=== PATIENT | female | born 1970 | race Caucasian/White ===

== ENCOUNTER 2016-10-27 20:58 | Inpatient (IN) | payer MEDICAID ==
[2016-10-27] MEDS ORDERED: HYDROMORPHONE HCL INJ/PF 2 MG/ML AMPULE IV ONE (21:37)
--- NOTE | 2016-10-27 21:49 | ER Document Report ---
ED Fall - General Stated Complaint: FALL/HIP PAIN Time seen by provider: 21:49 Mode of Arrival: Medic Information source: Patient - HPI Patient complains to provider of: fall, right hip pain Occurred: Just prior to arrival Where: Outdoors Context: Slipped Location of injury/pain: Hip Quality of pain: Achy Severity: Moderate Pain Level: 4 Notes: Patient is a 46-year-old female brought to emergency room by EMS for complaints of fall with injury to right hip, patient states that she was walking her dog who weighs approximately 150 pounds, the dog pulled her very abruptly, causing her to fall and land on her right hip, she was unable to get up and ambulate after the fall, she denies any loss of consciousness, no nausea or vomiting, patient admits to having a few beers prior to the fall occurring, and she is a smoker - Related data Allergies/Adverse Reactions: No Known Allergies Allergy (Unverified 03/21/11 14:08) Past Medical History - General Information source: Patient - Social History Smoking Status: Current Every Day Smoker Family History: Reviewed & Not Pertinent - Past Medical History Cardiac Medical History: Denies: Hx Coronary Artery Disease, Hx Heart Attack Comment Only: Hx Hypertension - hypotension Pulmonary Medical History: Reports: Hx Bronchitis Denies: Hx Asthma, Hx COPD, Hx Pneumonia Neurological Medical History: Denies: Hx Cerebrovascular Accident, Hx Seizures GI Medical History: Reports: Hx Gastritis, Hx Gastroesophageal Reflux Disease, Hx Ulcer Musculoskeltal Medical History: Denies Hx Arthritis Past Surgical History: Reports: Hx Hysterectomy, Hx Tonsillectomy. Denies: Hx Pacemaker - Immunizations Hx Diphtheria, Pertussis, Tetanus Vaccination: No Review of Systems - Review of Systems Constitutional: No symptoms reported EENT: No symptoms reported Cardiovascular: No symptoms reported Respiratory: No symptoms reported Gastrointestinal: No symptoms reported Genitourinary: No symptoms reported Female Genitourinary: No symptoms reported Musculoskeletal: See HPI Skin: No symptoms reported Hematologic/Lymphatic: No symptoms reported Neurological/Psychological: No symptoms reported -: Yes All other systems reviewed and negative Physical Exam - Vital signs Interpretation: Normal - General General appearance: Appears well, Alert - HEENT Head: Normocephalic, Atraumatic Eyes: Normal Pupils: PERRL - Respiratory Respiratory status: No respiratory distress Chest status: Nontender Breath sounds: Normal Chest palpation: Normal - Cardiovascular Rhythm: Regular Heart sounds: Normal auscultation Murmur: No - Abdominal Inspection: Normal Distension: No distension Bowel sounds: Normal Tenderness: Nontender Organomegaly: No organomegaly - Back Back: Normal, Nontender - Extremities General upper extremity: Normal inspection, Nontender, Normal color, Normal ROM , Normal temperature General lower extremity: No: Cassandra's sign Hip: Tender - Tender to palpate over her right hip, pain with range of motion testing, right leg is slightly shortened and internally rotated, distal sensation and motor is intact with 2+ DP pulses and brisk capillary refill - Neurological Neuro grossly intact: Yes Cognition: Normal Orientation: AAOx4 [place] Coma Scale Eye Opening: Spontaneous [place] Coma Scale Verbal: Oriented [place] Coma Scale Motor: Obeys Commands [place] Coma Scale Total: 15 Speech: Normal Motor strength normal: LUE, RUE, LLE, RLE Sensory: Normal - Psychological Associated symptoms: Normal affect, Normal mood - Skin Skin Temperature: Warm Skin Moisture: Dry Skin Color: Normal Course - Re-evaluation Re-evalutation: 10/28/16 00:20 Patient was discussed with the on-call orthopedist who agrees to admit for further evaluation and treatment - Laboratory Result Diagrams: 10/27/16 22:45 10/27/16 22:45 - Diagnostic Test Radiology reviewed: Image reviewed, Reports reviewed - EKG Interpretation by [facility] EKG shows normal: Sinus rhythm Rate: Normal Rhythm: NSR - Consults Dr. Huber Time consulted: 22:18 Reason for consultation: 10/27/16 22:18 Right hip fracture Consulted provider: other - Transfer of Care Care transferred to following provider: Dr. Huber Discharge - Discharge Clinical Impression: Closed right hip fracture Qualifiers: Encounter type: initial encounter Qualified Code(s): S72.001A - Fracture of unspecified part of neck of right femur, initial encounter for closed fracture Condition: Stable Disposition: ADMITTED INPATIENT Admitting Provider: Dr. Huber Unit Admitted: Surgical Floor
[2016-10-27 22:57] LABS: WHITE BLOOD COUNT 5.6 10^3/uL (4.0-10.5)
[2016-10-27 23:03] LABS: HEMATOCRIT 27.9 % (36.0-47.0); HEMOGLOBIN 9.2 g/dL (12.0-15.5); HGB HCT DIFFERENCE -0.3; MEAN CORPUSCULAR HEMOGLOBIN 27.9 pg (27.0-33.4); MEAN CORPUSCULAR HGB CONC 32.9 g/dL (32.0-36.0); MEAN CORPUSCULAR VOLUME 85 fl (80-97); RED BLOOD COUNT 3.29 10^6/uL (3.72-5.28); RED CELL DISTRIBUTION WIDTH 16.9 % (11.5-14.0)
[2016-10-27 23:13] LABS: BASOPHILS % (MANUAL) 0 % (0-2); EOSINOPHILS % (MANUAL) 1 % (0-6); LYMPHOCYTES % (MANUAL) 28 % (13-45); TOTAL CELLS COUNTED 100
[2016-10-27 23:14] LABS: PARTIAL THROMBOPLASTIN TIME 32.4 SEC (23.5-35.8)
[2016-10-27 23:15] LABS: ALANINE AMINOTRANSFERASE 45 U/L (9-52); ALBUMIN 3.4 g/dL (3.5-5.0); ALCOHOL 160 mg/dL (NONE DETECTED); ALKALINE PHOSPHATASE 76 U/L (38-126); ANION GAP 12 (5-19); ASPARTATE AMINO TRANSFERASE 55 U/L (14-36); BILIRUBIN,DIRECT 0.1 mg/dL (0.0-0.4); BILIRUBIN,TOTAL 0.2 mg/dL (0.2-1.3); BLOOD UREA NITROGEN 8 mg/dL (7-20); CALCIUM 8.6 mg/dL (8.4-10.2); CARBON DIOXIDE 18 mmol/L (22-30); CHLORIDE 104 mmol/L (98-107); CREATININE RESULT 0.61 mg/dL (0.52-1.25); GLUCOSE 104 mg/dL (75-110); POTASSIUM 4.3 mmol/L (3.6-5.0); SODIUM 133.8 mmol/L (137-145); TOTAL PROTEIN 6.2 g/dL (6.3-8.2)
[2016-10-27 23:16] LABS: ANISOCYTOSIS 1+; TOXIC GRANULATION SLIGHT
[2016-10-27 23:18] LABS: HYPOCHROMASIA SLIGHT
[2016-10-27 23:25] LABS: APPEARANCE,URINE CLEAR; BILIRUBIN,URINE NEGATIVE (NEGATIVE); GLUCOSE, URINE NEGATIVE (NEGATIVE); KETONES,URINE NEGATIVE (NEGATIVE); LEUKOCYTE ESTERASE,URINE TRACE (NEGATIVE); NITRITE,URINE NEGATIVE (NEGATIVE); PROTEIN,URINE NEGATIVE (NEGATIVE); URINE SPECIFIC GRAVITY 1.003; UROBILINOGEN,URINE NEGATIVE mg/dL (<2.0)
[2016-10-28] MEDS: ONDANSETRON HCL INJ/PF 4 MG/2 ML SDV IV PRN ×2 (00:44→13:51)
[2016-10-28] MEDS: MORPHINE SULFATE 10 MG/ML INJ IV PRN ×5 (00:45→22:57)
[2016-10-28] MEDS: RINGERS SOLUTION,LACTATED 1,000 ML IV PRN (05:51)
[2016-10-28] MEDS ORDERED: NICOTINE 21 MG/24 HR PATCH.TD24 TD PRN (08:18)
--- NOTE | 2016-10-28 08:21 | PDOC CONSULTATION ---
Consultation Consult Date: 10/28/16 Attending physician:: PHONG GONZALEZ Consult reason:: To aid in the medical management of patient with hip fracture History of Present Illness Admission Date/PCP: 10/28/16 00:18 Urgent Care in [place] Patient complains of: Hip pain History of Present Illness: HEMANTH ZARATE is a 46 year old female with a past medical history of tobacco dependency. The patient was brought to emergency room by EMS for complaints of fall with injury to right hip. Patient states that she was walking her dog who weighs approximately 150 pounds, the dog pulled her very abruptly, causing her to fall and land on her right hip, she was unable to get up and ambulate after the fall, she denies any loss of consciousness, no nausea or vomiting, patient admits to having a few beers prior to the fall occurring, and she is a smoker and had a hysterectomy. Currently not on HRT. Patient was noted to have comminuted, displaced, intertrochanteric fracture at the proximal right femur on plain film x-ray. The patient denies any chronic medical problems. The patient does note that she is "unable to swallow pills". I gently explained to the patient that her pain would be controlled and that pain medication can be crushed or dispensed in an oral solution. The patient was also noted to have a hemoglobin of 9.2. The patient denies any melena, bright red bleeding per rectum, or hematochezia. Past Medical History Cardiac Medical History: Comment Only: Hypertension - Hypotension Pulmonary Medical History: Reports: Bronchitis GI Medical History: Reports: Gastroesophageal Reflux Disease Psychiatric Medical History: Reports: Tobacco Dependency Past Surgical History Past Surgical History: Reports: Hysterectomy, Tonsillectomy Social History Information Source: Patient Occupation: Unemployed Lives with: Family Smoking Status: Current Every Day Smoker Cigarettes Packs Per Day: 1 Number of Years Smokin Last Time Smoked: today Frequency of Alcohol Use: Occasional Amount of Alcoholic Beverages Per Day: Describes drinking a 6 pack on the weekends Last Alcohol Use: 10/27/16 Hx Recreational Drug Use: No Drugs: None Hx Prescription Drug Abuse: No - Advance Directive Resuscitation Status: Full Code Surrogate healthcare decision maker:: Her boyfriend Family History Family History: None - Estranged Parental Family History Reviewed: Yes - Estranged Children Family History Reviewed: Yes Sibling(s) Family History Reviewed.: Unknown Medication/Allergy Home Medications: No Home Medications 12/18/13 Allergies/Adverse Reactions: metal Allergy (Intermediate, Uncoded 10/28/16 07:15) Review of Systems Constitutional: ABSENT: chills, fever(s), headache(s), weight gain, weight loss Eyes: ABSENT: visual disturbances Ears: ABSENT: hearing changes Cardiovascular: ABSENT: chest pain, dyspnea on exertion, edema, orthropnea, palpitations Respiratory: ABSENT: cough, hemoptysis Gastrointestinal: PRESENT: dysphagia, heartburn. ABSENT: abdominal pain, constipation, diarrhea, hematemesis, hematochezia, nausea, vomiting Genitourinary: ABSENT: dysuria, hematuria Musculoskeletal: PRESENT: deformity, joint swelling Integumentary: ABSENT: rash, wounds Neurological: PRESENT: abnormal gait - Secondary to fracture, focal weakness - Secondary to fall. ABSENT: abnormal speech, confusion, dizziness, syncope Psychiatric: ABSENT: anxiety, depression, homidical ideation, suicidal ideation Endocrine: ABSENT: cold intolerance, heat intolerance, polydipsia, polyuria Hematologic/Lymphatic: ABSENT: easy bleeding, easy bruising Physical Exam Vital Signs: Temp Pulse Resp BP Pulse Ox 98.7 F 98 16 127/78 H 97 10/28/16 07:16 10/28/16 07:16 10/28/16 07:16 10/28/16 07:16 10/28/16 07:16 Intake & Output 10/26/16 10/27/16 10/28/16 23:59 23:59 23:59 Weight 49.2 kg General appearance: PRESENT: no acute distress, cooperative, disheveled, thin Exam: Frail appearing Head exam: PRESENT: atraumatic, normocephalic Eye exam: PRESENT: conjunctiva pink, EOMI, PERRLA. ABSENT: scleral icterus Ear exam: PRESENT: normal external ear exam Mouth exam: PRESENT: moist, tongue midline Neck exam: ABSENT: carotid bruit, JVD, lymphadenopathy, thyromegaly Respiratory exam: PRESENT: clear to auscultation bonnie, symmetrical, unlabored. ABSENT: rales, rhonchi, tachypnea, wheezes Cardiovascular exam: PRESENT: RRR. ABSENT: diastolic murmur, rubs, systolic murmur Pulses: PRESENT: normal dorsalis pedis pul Vascular exam: PRESENT: normal capillary refill GI/Abdominal exam: PRESENT: normal bowel sounds, soft. ABSENT: distended, guarding, mass, organolmegaly, rebound, tenderness Rectal exam: PRESENT: deferred Extremities exam: PRESENT: other - Tender to palpate over her right hip, pain with range of motion testing, right leg is slightly shortened and internally rotated, distal sensation and motor is intact with 2+ DP pulses and brisk capillary refill. ABSENT: calf tenderness, clubbing, pedal edema Neurological exam: PRESENT: alert, awake, oriented to person, oriented to place , oriented to time, oriented to situation, CN II-XII grossly intact. ABSENT: motor sensory deficit Psychiatric exam: PRESENT: appropriate affect, normal mood. ABSENT: homicidal ideation, suicidal ideation Skin exam: PRESENT: dry, intact, warm. ABSENT: cyanosis, rash Results Laboratory Results: Labs- Last Values WBC 5.6 10^3/uL (4.0-10.5) 10/27/16 22:45 RBC 3.29 10^6/uL (3.72-5.28) L 10/27/16 22:45 Hgb 9.2 g/dL (12.0-15.5) L 10/27/16 22:45 Hct 27.9 % (36.0-47.0) L 10/27/16 22:45 MCV 85 fl (80-97) 10/27/16 22:45 MCH 27.9 pg (27.0-33.4) 10/27/16 22:45 MCHC 32.9 g/dL (32.0-36.0) 10/27/16 22:45 RDW 16.9 % (11.5-14.0) H 10/27/16 22:45 Plt Count 136 10^3/uL (150-450) L 10/27/16 22:45 Total Counted 100 10/27/16 22:45 Seg Neutrophils % Not Reportable 10/27/16 22:45 Seg Neuts % (Manual) 66 % (42-78) 10/27/16 22:45 Lymphocytes % Not Reportable 10/27/16 22:45 Lymphocytes % (Manual) 28 % (13-45) 10/27/16 22:45 Monocytes % Not Reportable 10/27/16 22:45 Monocytes % (Manual) 5 % (3-13) 10/27/16 22:45 Eosinophils % Not Reportable 10/27/16 22:45 Eosinophils % (Manual) 1 % (0-6) 10/27/16 22:45 Basophils % Not Reportable 10/27/16 22:45 Basophils % (Manual) 0 % (0-2) 10/27/16 22:45 Absolute Neutrophils Not Reportable 10/27/16 22:45 Abs Neuts (Manual) 3.7 10^3/uL (1.7-8.2) 10/27/16 22:45 Absolute Lymphocytes Not Reportable 10/27/16 22:45 Abs Lymphs (Manual) 1.6 10^3/uL (0.5-4.7) 10/27/16 22:45 Absolute Monocytes Not Reportable 10/27/16 22:45 Abs Monocytes (Manual) 0.3 10^3/uL (0.1-1.4) 10/27/16 22:45 Absolute Eosinophils Not Reportable 10/27/16 22:45 Absolute Eos (Manual) 0.1 10^3/uL (0.0-0.6) 10/27/16 22:45 Absolute Basophils Not Reportable 10/27/16 22:45 Abs Basophils (Manual) 0.0 10^3/uL (0.0-0.2) 10/27/16 22:45 Toxic Granulation SLIGHT 10/27/16 22:45 Platelet Comment ADEQUATE 10/27/16 22:45 Hypochromasia SLIGHT 10/27/16 22:45 Anisocytosis 1+ 10/27/16 22:45 PT 13.0 SEC (11.4-15.4) 10/27/16 22:45 INR 0.95 10/27/16 22:45 APTT 31.8 SEC (23.5-35.8) 10/28/16 00:38 Sodium 133.8 mmol/L (137-145) L 10/27/16 22:45 Potassium 4.3 mmol/L (3.6-5.0) 10/27/16 22:45 Chloride 104 mmol/L (98-107) 10/27/16 22:45 Carbon Dioxide 18 mmol/L (22-30) L 10/27/16 22:45 Anion Gap 12 (5-19) 10/27/16 22:45 BUN 8 mg/dL (7-20) 10/27/16 22:45 Creatinine 0.61 mg/dL (0.52-1.25) 10/27/16 22:45 Est GFR ( Amer) > 60 (>60) 10/27/16 22:45 Est GFR (Non-Af Amer) > 60 (>60) 10/27/16 22:45 Glucose 104 mg/dL (75-110) 10/27/16 22:45 Calcium 8.6 mg/dL (8.4-10.2) 10/27/16 22:45 Total Bilirubin 0.2 mg/dL (0.2-1.3) 10/27/16 22:45 Direct Bilirubin 0.1 mg/dL (0.0-0.4) 10/27/16 22:45 Indirect Bilirubin Not Reportable 10/27/16 22:45 Neonat Total Bilirubin Not Reportable 10/27/16 22:45 AST 55 U/L (14-36) H 10/27/16 22:45 ALT 45 U/L (9-52) 10/27/16 22:45 Alkaline Phosphatase 76 U/L (38-126) 10/27/16 22:45 Total Protein 6.2 g/dL (6.3-8.2) L 10/27/16 22:45 Albumin 3.4 g/dL (3.5-5.0) L 10/27/16 22:45 Urine Color YELLOW 10/27/16 23:05 Urine Appearance CLEAR 10/27/16 23:05 Urine pH 5.0 (5.0-9.0) 10/27/16 23:05 Ur Specific [place] 1.003 10/27/16 23:05 Urine Protein NEGATIVE mg/dL (NEGATIVE) 10/27/16 23:05 Urine Glucose (UA) NEGATIVE mg/dL (NEGATIVE) 10/27/16 23:05 Urine Ketones NEGATIVE mg/dL (NEGATIVE) 10/27/16 23:05 Urine Blood NEGATIVE (NEGATIVE) 10/27/16 23:05 Urine Nitrite NEGATIVE (NEGATIVE) 10/27/16 23:05 Urine Bilirubin NEGATIVE (NEGATIVE) 10/27/16 23:05 Urine Urobilinogen NEGATIVE mg/dL (<2.0) 10/27/16 23:05 Ur Leukocyte Esterase TRACE (NEGATIVE) H 10/27/16 23:05 Urine WBC (Auto) 1 /HPF 10/27/16 23:05 Urine RBC (Auto) 0 /HPF 10/27/16 23:05 Urine Bacteria (Auto) 1+ /HPF 10/27/16 23:05 Urine Mucus (Auto) RARE /LPF 10/27/16 23:05 Urine Ascorbic Acid NEGATIVE (NEGATIVE) 10/27/16 23:05 Serum Alcohol 160 mg/dL (NONE DETECTED) 10/27/16 22:45 Impressions: Chest X-Ray 10/27/16 00:00 IMPRESSION: NO ACUTE RADIOGRAPHIC FINDING IN THE CHEST. Hip/Pelvis X-Ray 10/27/16 21:37 IMPRESSION: RIGHT FRACTURE ABOVE. Lower Extremity CT 10/28/16 00:00 IMPRESSION: Comminuted, displaced, intertrochanteric fracture at the proximal right femur. If there is clinical concern for pathologic fracture, MRI can help in better evaluation. Assessment & Plan - Diagnosis (1) Closed right hip fracture Qualifiers: Encounter type: initial encounter Qualified Code(s): S72.001A - Fracture of unspecified part of neck of right femur, initial encounter for closed fracture Is this a current diagnosis for this admission?: YesPlan: Management as per orthopedics. (2) Anemia Qualifiers: Anemia type: unspecified type Qualified Code(s): D64.9 - Anemia, unspecified Is this a current diagnosis for this admission?: YesPlan: Uncertain of the exact etiology of this. Given the patient's apparent malnutrition this may be chronic dietary related. Will obtain iron studies and repeat CBC. Will go ahead and type and cross as well. (3) Acute alcohol intoxication Qualifiers: Complication of substance-induced condition: uncomplicated Qualified Code(s): F10.120 - Alcohol abuse with intoxication, uncomplicated Is this a current diagnosis for this admission?: YesPlan: The patient is awake and oriented at this time no evidence of acute withdrawals. Will monitor closely the patient was quite a vague historian in this matter and labs below. 10/27/16 22:45 Sodium 133.8 L AST 55 H (4) Inability to swallow pills Is this a current diagnosis for this admission?: YesPlan: IV medication for immediate postop pain. I have explained to the patient that oral medications can be obtained in either solution form or crushed. The patient will not be receiving IV pain medication during the duration of her stay (5) Likely osteoporosis Is this a current diagnosis for this admission?: YesPlan: Most likely the patient will need a biphosphonate in outpatient basis. Can be followed by her primary. Will obtain vitamin D level and follow. (6) Hyponatremia Is this a current diagnosis for this admission?: YesPlan: Relatively mild and may be due to her consumption. She has been hydrated. Will repeat chemistries and follow. (7) Malnutrition Is this a current diagnosis for this admission?: YesPlan: The patient does have a low BMI. Will encourage by mouth intake. 10/27/16 22:45 Albumin 3.4 L (8) DVT prophylaxis Is this a current diagnosis for this admission?: YesPlan: As per ortho. Have discussed the case and do not recommend oral agents given the patient's preoperative hemoglobin. (9) Tobacco dependency Is this a current diagnosis for this admission?: YesPlan: Spent 3 minutes discussing smoking cessation education. The patient declines any pharmacological intervention at this time however will add a PRN nicotine patch. - Time Time Spent: 50 to 70 Minutes Smoking Cessation Education: 3 to 10 minutes Medications reviewed and adjusted accordingly: Yes Anticipated discharge: Home with Homehealth Within: within 48 hours Disposition: The patient is a full code. Pending patient's symptomatology and diagnostic findings will reevaluate in the a.m.
[2016-10-28 08:29] LABS: HEMATOCRIT 26.8 % (36.0-47.0); HGB HCT DIFFERENCE 0.2; MEAN CORPUSCULAR HEMOGLOBIN 28.2 pg (27.0-33.4); MEAN CORPUSCULAR HGB CONC 33.4 g/dL (32.0-36.0); MEAN CORPUSCULAR VOLUME 84 fl (80-97); RED BLOOD COUNT 3.18 10^6/uL (3.72-5.28); RED CELL DISTRIBUTION WIDTH 16.5 % (11.5-14.0); WHITE BLOOD COUNT 4.8 10^3/uL (4.0-10.5)
[2016-10-28 08:51] LABS: ANION GAP 12 (5-19); BLOOD UREA NITROGEN 8 mg/dL (7-20); CARBON DIOXIDE 18 mmol/L (22-30); CHLORIDE 106 mmol/L (98-107); CREATININE RESULT 0.66 mg/dL (0.52-1.25); GLUCOSE 84 mg/dL (75-110); POTASSIUM 4.4 mmol/L (3.6-5.0)
[2016-10-28] MEDS ORDERED: LIDOCAINE 2% INJ-PF (20 MG/ML) 10 ML AMPUL ONE (09:36)
[2016-10-28] MEDS ORDERED: HYDROMORPHONE HCL INJ/PF 2 MG/ML AMPULE ONE (09:36)
[2016-10-28] MEDS ORDERED: EPHEDRINE SULFATE INJ 50 MG/1 ML AMPULE ONE (09:37)
[2016-10-28] MEDS ORDERED: FENTANYL CITRATE INJ/PF 100 MCG/2 ML AMPUL ONE (09:37)
[2016-10-28] MEDS ORDERED: ONDANSETRON HCL INJ/PF 4 MG/2 ML SDV ONE ×2 (09:37→12:02)
[2016-10-28] MEDS ORDERED: DEXAMETHASONE SOD PHOSPHATE INJ 4 MG/1 ML VIAL ONE (09:37)
[2016-10-28] MEDS ORDERED: MIDAZOLAM 2 MG/2 ML INJ ONE (09:37)
[2016-10-28] MEDS ORDERED: ACETAMINOPHEN 100 ML IV ONE (09:38)
[2016-10-28] MEDS ORDERED: DEXMEDETOMIDINE INJ 80 MCG/20 ML VIAL IV ONE (09:38)
[2016-10-28] MEDS ORDERED: PROPOFOL INJ 200 MG/20 ML VIAL IV ONE (09:38)
--- NOTE | 2016-10-28 09:57 | PDOC H&P ---
History of Present Illness Admission Date/PCP: 10/28/16 00:18 Patient complains of: Right Hip Pain History of Present Illness: HEMANTH ZARATE is a 46 year old female with a past medical history of tobacco dependency. The patient was brought to emergency room by EMS for complaints of fall with injury to right hip. Patient states that she was walking her dog who weighs approximately 150 pounds, the dog pulled her very abruptly, causing her to fall and land "very hard" on her right hip, she was unable to get up and ambulate after the fall. Patient states pain is 10/10. Denies numbness or tingling. Has had previous hip discomfort she states it pops and clicks but does not limit her. Denies fever chills or weight loss. Denies constitutional symptoms. Pain was improved with IV pain medication but she has not had any since 5 AM. Past Medical History Cardiac Medical History: Denies: Coronary Artery Disease, Myocardial Infarction Comment Only: Hypertension - Hypotension Pulmonary Medical History: Reports: Bronchitis Denies: Asthma, Chronic Obstructive Pulmonary Disease (COPD), Pneumonia Neurological Medical History: Denies: Seizures GI Medical History: Reports: Gastroesophageal Reflux Disease Musculoskeltal Medical History: Denies: Arthritis Psychiatric Medical History: Reports: Tobacco Dependency Hematology: Denies: Anemia Past Surgical History Past Surgical History: Reports: Hysterectomy, Tonsillectomy Denies: Pacemaker Social History Lives with: Family Smoking Status: Current Every Day Smoker Cigarettes Packs Per Day: 1 Number of Years Smokin Last Time Smoked: today Frequency of Alcohol Use: Occasional Hx Recreational Drug Use: No Drugs: None Hx Prescription Drug Abuse: No - Advance Directive Resuscitation Status: Full Code Family History Family History: None - Estranged Parental Family History Reviewed: No Children Family History Reviewed: No Sibling(s) Family History Reviewed.: No Medication/Allergy Home Medications: No Home Medications 10/28/16 Allergies/Adverse Reactions: metal Allergy (Intermediate, Uncoded 10/28/16 07:15) Review of Systems Constitutional: ABSENT: chills, fever(s), headache(s), weight gain, weight loss Eyes: ABSENT: visual disturbances Ears: ABSENT: hearing changes Cardiovascular: ABSENT: chest pain, dyspnea on exertion, edema, orthropnea, palpitations Respiratory: ABSENT: cough, hemoptysis Gastrointestinal: PRESENT: dysphagia. ABSENT: abdominal pain, constipation, diarrhea, hematemesis, hematochezia, nausea, vomiting Genitourinary: ABSENT: dysuria, hematuria Integumentary: ABSENT: rash, wounds Neurological: ABSENT: abnormal gait, abnormal speech, confusion, dizziness, focal weakness, syncope Psychiatric: ABSENT: anxiety, depression, homidical ideation, suicidal ideation Endocrine: ABSENT: cold intolerance, heat intolerance, menstrual abnormalities, polydipsia, polyuria Hematologic/Lymphatic: ABSENT: easy bleeding, easy bruising, lymphadenopathy Physical Exam Vital Signs: Temp Pulse Resp BP Pulse Ox 98.7 F 98 16 127/78 H 97 10/28/16 07:16 10/28/16 07:16 10/28/16 07:16 10/28/16 07:16 10/28/16 07:16 Intake & Output 10/27/16 10/28/16 10/29/16 06:59 06:59 06:59 Weight 49.2 kg General appearance: PRESENT: no acute distress, well-developed, other - Thin- appearing female Head exam: PRESENT: atraumatic, normocephalic Eye exam: PRESENT: conjunctiva pink, EOMI, PERRLA. ABSENT: scleral icterus Ear exam: PRESENT: normal external ear exam Mouth exam: PRESENT: moist, tongue midline Neck exam: PRESENT: full ROM. ABSENT: carotid bruit, JVD, lymphadenopathy, thyromegaly Respiratory exam: PRESENT: clear to auscultation bonnie, unlabored Cardiovascular exam: PRESENT: RRR. ABSENT: diastolic murmur, rubs, systolic murmur Pulses: PRESENT: normal dorsalis pedis pul, +2 pedal pulses bilateral Vascular exam: PRESENT: normal capillary refill GI/Abdominal exam: PRESENT: normal bowel sounds, soft. ABSENT: distended, guarding, mass, organolmegaly, rebound, tenderness Rectal exam: PRESENT: deferred Musculoskeletal exam: PRESENT: other - Right lower extremity: Shortened externally rotated. Positive log roll. Cap refill less than 2 seconds. Dorsalis 2+. No sensory deficits. No tenderness to palpation on the nontraumatic left lower extremity and bilateral upper extremity. Neurological exam: PRESENT: alert, awake, oriented to person, oriented to place , oriented to time, oriented to situation, CN II-XII grossly intact. ABSENT: motor sensory deficit Psychiatric exam: PRESENT: appropriate affect, normal mood. ABSENT: homicidal ideation, suicidal ideation Skin exam: PRESENT: dry, intact, warm. ABSENT: cyanosis, rash Results Laboratory Results: 10/28/16 08:18 10/28/16 08:18 10/28/16 10/28/16 10/28/16 08:18 08:18 08:18 WBC 4.8 RBC 3.18 L Hgb 9.0 L Hct 26.8 L MCV 84 MCH 28.2 MCHC 33.4 RDW 16.5 H Plt Count 124 L Retic Count (auto) 1.82 Absolute Retic 0.058 Sodium Potassium Chloride Carbon Dioxide Anion Gap BUN Creatinine Est GFR ( Amer) Est GFR (Non-Af Amer) Glucose Calcium Blood Type A NEGATIVE Antibody Screen NEGATIVE 10/28/16 08:18 WBC RBC Hgb Hct MCV MCH MCHC RDW Plt Count Retic Count (auto) Absolute Retic Sodium 136.0 L Potassium 4.4 Chloride 106 Carbon Dioxide 18 L Anion Gap 12 BUN 8 Creatinine 0.66 Est GFR ( Amer) > 60 Est GFR (Non-Af Amer) > 60 Glucose 84 Calcium 9.0 Blood Type Antibody Screen Impressions: Chest X-Ray 10/27/16 00:00 IMPRESSION: NO ACUTE RADIOGRAPHIC FINDING IN THE CHEST. Hip/Pelvis X-Ray 10/27/16 21:37 IMPRESSION: RIGHT FRACTURE ABOVE. Lower Extremity CT 10/28/16 00:00 IMPRESSION: Comminuted, displaced, intertrochanteric fracture at the proximal right femur. If there is clinical concern for pathologic fracture, MRI can help in better evaluation. Assessment & Plan - Diagnosis (1) Fracture, intertrochanteric, right femur Qualifiers: Encounter type: initial encounter Fracture type: closed Qualified Code(s): S72.141A - Displaced intertrochanteric fracture of right femur, initial encounter for closed fracture Is this a current diagnosis for this admission?: YesPlan: Patient sustained intertrochanteric right hip fracture. Which is somewhat unusual given her age she did have previous hip pain which was chronic in nature. Patient CT scan radiographs failed to demonstrate evidence of pathologic fracture there is a small lucency along the femoral neck and given patient's age we will obtain intraoperative specimen to evaluate for possible underlying etiology. I discussed treatment options with the patient including operative versus nonoperative intervention. It have recommended right intramedullary nail risks and benefits were explained patient verbalized understanding and consented for the procedure. Risks include anesthetic complications, excessive bleeding, infection, injury to surrounding nerves, vessels and tendons, bruising, healing difficulties, scar formation, posttraumatic arthritis and any unforseen complication. Appreciate Joseph Kapadia consult for patient's chronic medical issues including anemia and alcohol abuse.
[2016-10-28] MEDS ORDERED: CEFAZOLIN INJ 1 GM VIAL ONE (10:17)
--- NOTE | 2016-10-28 10:24 | EKG REPORT ---
SEVERITY:- BORDERLINE ECG - SINUS RHYTHM BORDERLINE T ABNORMALITIES, ANT-LAT LEADS : Confirmed by: John Garcia MD 28-Oct-2016 10:23:37
[2016-10-28] MEDS ORDERED: MORPHINE SULFATE 10 MG/ML INJ IV PRN (10:25)
[2016-10-28] MEDS ORDERED: OXYCODONE-ACETAMINOPHEN 5-325 MG TABLET PO PRN ×2 (10:25)
[2016-10-28] MEDS ORDERED: PROMETHAZINE HCL INJ 25 MG/1 ML VIAL IV PRN ×2 (10:25)
[2016-10-28] MEDS ORDERED: MEPERIDINE HCL/PF INJ 25 MG/1 ML DISP.SYRIN IV PRN (10:25)
[2016-10-28] MEDS ORDERED: ONDANSETRON HCL INJ/PF 4 MG/2 ML SDV IV PRN (10:25)
[2016-10-28] MEDS ORDERED: FENTANYL CITRATE INJ/PF 100 MCG/2 ML AMPUL IV PRN ×3 (10:25)
[2016-10-28] MEDS ORDERED: DIPHENHYDRAMINE HCL 50 MG/ML VIAL IV PRN (10:25)
[2016-10-28] MEDS ORDERED: BUPIVACAINE HCL 0.5 % INJ/PF 30 ML SDV ONE (10:56)
--- NOTE | 2016-10-28 11:20 | Operative Report ---
Operative Report DATE OF SURGERY: 10/28/16 PREOPERATIVE DIAGNOSIS: Right Intertrochanteric Femur Fracture POSTOPERATIVE DIAGNOSIS: Same OPERATION: Cephalomedullary Nail Right Intertrochanteric Fracture SURGEON: PHONG GONZALEZ ANESTHESIA: GA TISSUE REMOVED OR ALTERED: Bone Proximal Femur COMPLICATIONS: None ESTIMATED BLOOD LOSS: 75cc PROCEDURE: Indication for above procedure: 46-year-old female presents merger after sustaining a fall while walking her dog onto her right hip. X-rays demonstrated proximal femur fracture. Patient was admitted to the orthopedic service at which point she was evaluated by the hospitalist deemed medically optimized for operative intervention. We then discussed risks and benefits of the operative procedure patient verbalized understanding and consented for the procedure. Patient was seen and evaluated in the preoperative holding area. The right lower extremity was initialized and marked. Patient received 2 g Ancef IV for bacterial prophylaxis. Patient was taken back to the operative room where transferred operative table. Patient was placed under spinal anesthesia. Once adequate anesthetized he was carefully placed onto the hip positioner the nonoperative lower extremity and bilateral upper extremities were carefully padded and the peroneal nerve was padded and on the nonoperative extremity. The operative extremity was placed in a traction along with adduction and internal rotation. A surgical team debriefing was performed ensuring all instrumentation was available, the surgical procedure was discussed with possible concerns reviewed. A timeout was done identifying correct patient, procedure and extremity everyone in attendance agree with this and verbalized no concerns. Reduction maneuver with the use of the hip traction table were done and C-arm fluoroscopy was used to confirm optimal reduction of the intertrochanteric fracture. Once this was confirmed the lower extremity was prepped with chlor prep and draped in a sterile fashion. At this point a small skin incision was made proximal to the greater trochanter. The guidewire was placed onto the tip of the trochanter advanced down to the level of the lesser trochanter. AP and lateral fluoroscopy was used to confirm appropriate placement of the guidewire. The skin incision was then extended and the underlying fascia opened up carefully to the tip of the greater trochanter. The entry reamer was then used and advanced to the level of the lesser trochanter. At this point Doroteo short gamma nail was opened up and placed onto the aiming arm and advanced down the shaft of the femur. AP and lateral fluoroscopy was then used to confirm appropriate placement of the nail. Then turned my attention to the compression screw fixation in the femoral head. The trochars were advanced to the skin, a skin incision was made, careful dissection down to the fascia to the lateral femoral cortex was then partaken. The guidewire was then used and placed in the center center position with the tip apex distance less than 25 mm. Once this position was obtained the size of the compression screw was measured. AP and lateral fluoroscopy used to confirm appropriate placement of our guide wire. The step reamer was used to drill up through the femoral neck and head. I then carefully advanced the compression screw into position. AP and lateral fluoroscopy was done to confirm appropriate placement of the compression screw this was then locked into position proximally. The compression screw was then disengaged from its mounting device and the guidewire was removed. Lastly proceeded with locking of the nail distally. Using the aiming arm the trochars were advanced to the skin, a skin incision was made. Careful dissection done with a hemostat to the lateral cortex of the femur. I then drilled the near and far cortices. Measured the appropriate sized distal locking screw and secured it into position. At this point AP/lateral and oblique views of the proximal and distal aspect of the nail were taken confirming appropriate placement of the compression screw, distal locking screw and intramedullary nail. There was no fluoroscopic evidence to suggest pathologic fracture. The reamings from the trochanteric reamer and step reamer at the femoral neck were sent to pathology. The wounds were irrigated with normal saline. 30 mL of 0.5% Marcaine without epinephrine was injected for postoperative pain control. Deep fascia was closed with 0 Vicryl. Subcutaneous days tissues closed with 2- 0 Vicryl suture. The skin was closed a running 3-0 subcuticular Monocryl suture and reinforced with Dermabond & Steri-Strips. A dressing was placed. Sponge counts, instrument counts and needle counts were correct. Patient was then transferred from the operating room table to the operating room stretcher. The was no intraoperative complications patient tolerated procedure well was stable to PACU. Implants used: Doroteo 11 x 180 mm 125 Short Gamma Nail with a 85 mm compression screw Postoperative plan: Patient will begin physical therapy on postop day #1 with subcutaneous heparin twice a day for prophylaxis.
[2016-10-28] MEDS: LANSOPRAZOLE 30 MG TAB.RAP.DR PO SCH (17:59)
[2016-10-28] MEDS ORDERED: HEPARIN SOD (PORCINE) 5,000 UNIT/ML 1 ML SYRINGE SUBCUT SCH (22:00)
[2016-10-28] MEDS: ZOLPIDEM TARTRATE 5 MG TABLET PO SCH (22:58)
[2016-10-29] MEDS: MORPHINE SULFATE 10 MG/ML INJ IV PRN ×5 (04:02→23:40)
[2016-10-29] MEDS: RINGERS SOLUTION,LACTATED 1,000 ML IV PRN ×2 (04:03→15:22)
[2016-10-29] MEDS: LANSOPRAZOLE 30 MG TAB.RAP.DR PO SCH ×2 (05:40→16:53)
[2016-10-29 06:54] LABS: ABSOLUTE LYMPHOCYTES (AUTO) 0.7 10^3/uL (0.5-4.7); ABSOLUTE MONOCYTES (AUTO) 0.4 10^3/uL (0.1-1.4); ABSOLUTE NEUT (AUTO) 3.9 10^3/uL (1.7-8.2); BASOPHILS % (AUTO) 0.6 % (0-2); HEMATOCRIT 19.7 % (36.0-47.0); HGB HCT DIFFERENCE -0.5; LYMPHOCYTES % (AUTO) 13.9 % (13-45); MEAN CORPUSCULAR HEMOGLOBIN 27.8 pg (27.0-33.4); MEAN CORPUSCULAR HGB CONC 32.3 g/dL (32.0-36.0); MEAN CORPUSCULAR VOLUME 86 fl (80-97); MONOCYTES % (AUTO) 8.7 % (3-13); RED CELL DISTRIBUTION WIDTH 16.7 % (11.5-14.0); SEGMENTED NEUTROPHILS % (AUTO) 76.8 % (42-78); WHITE BLOOD COUNT 5.1 10^3/uL (4.0-10.5)
[2016-10-29 07:06] LABS: HEMOGLOBIN 6.4 g/dL (12.0-15.5)
[2016-10-29 07:09] LABS: ANION GAP 6 (5-19); BLOOD UREA NITROGEN 9 mg/dL (7-20); CALCIUM 8.9 mg/dL (8.4-10.2); CARBON DIOXIDE 26 mmol/L (22-30); CHLORIDE 102 mmol/L (98-107); GLUCOSE 103 mg/dL (75-110); POTASSIUM 3.9 mmol/L (3.6-5.0)
--- NOTE | 2016-10-29 09:59 | PDOC PROGRESS REPORT ---
Subjective Progress Note for:: 10/29/16 Subjective:: Patient seen and evaluated this morning. She states she feels much better. Denies headache or dizziness. Patient's hemoglobin did decrease postoperatively. Patient denies chest pain or shortness of breath. After further questioning she states she has chronic anemia and required blood transfusions in the past but the exact etiology is unknown. Physical Exam Vital Signs: Temp Pulse Resp BP Pulse Ox 98.8 F 102 H 18 103/57 L 91 L 10/29/16 09:46 10/29/16 09:46 10/29/16 09:46 10/29/16 09:46 10/29/16 09:46 Intake & Output 10/28/16 10/29/16 10/30/16 06:59 06:59 06:59 Intake Total 3828 0 Output Total 1680 Balance 2148 0 Weight 49.2 kg Musculoskeletal exam: PRESENT: other - Right lower extremity: Considerable thigh swelling. Compartments soft and compressible no sign of compartment syndrome. Dorsalis pedis pulse 2+. Intact plantar flexion/dorsiflexion. No limb length inequality. No sensory deficits. Results Laboratory Results: 10/29/16 05:58 10/29/16 05:58 10/28/16 10/28/16 10/29/16 08:18 08:18 05:58 WBC 5.1 RBC 2.30 L Hgb 6.4 L D Hct 19.7 L MCV 86 MCH 27.8 MCHC 32.3 RDW 16.7 H Plt Count 114 L Seg Neutrophils % 76.8 Lymphocytes % 13.9 Monocytes % 8.7 Eosinophils % 0.0 Basophils % 0.6 Absolute Neutrophils 3.9 Absolute Lymphocytes 0.7 Absolute Monocytes 0.4 Absolute Eosinophils 0.0 Absolute Basophils 0.0 Sodium Potassium Chloride Carbon Dioxide Anion Gap BUN Creatinine Est GFR ( Amer) Est GFR (Non-Af Amer) Glucose Calcium Iron 34.9 L TIBC 268 % Saturation 13 Ferritin 23.30 Vitamin B12 601.0 Folate 8.30 Blood Type A NEGATIVE Antibody Screen NEGATIVE 10/29/16 05:58 WBC RBC Hgb Hct MCV MCH MCHC RDW Plt Count Seg Neutrophils % Lymphocytes % Monocytes % Eosinophils % Basophils % Absolute Neutrophils Absolute Lymphocytes Absolute Monocytes Absolute Eosinophils Absolute Basophils Sodium 134.0 L Potassium 3.9 Chloride 102 Carbon Dioxide 26 Anion Gap 6 BUN 9 Creatinine 0.70 Est GFR ( Amer) > 60 Est GFR (Non-Af Amer) > 60 Glucose 103 Calcium 8.9 Iron TIBC % Saturation Ferritin Vitamin B12 Folate Blood Type Antibody Screen Impressions: Chest X-Ray 10/27/16 00:00 IMPRESSION: NO ACUTE RADIOGRAPHIC FINDING IN THE CHEST. Lower Extremity CT 10/28/16 00:00 IMPRESSION: Comminuted, displaced, intertrochanteric fracture at the proximal right femur. If there is clinical concern for pathologic fracture, MRI can help in better evaluation. Fluoroscopy 10/28/16 09:45 IMPRESSION: IMAGE(S) OBTAINED DURING PROCEDURE. Hip/Pelvis X-Ray 10/28/16 09:45 IMPRESSION: IMAGE(S) OBTAINED DURING PROCEDURE. Assessment & Plan - Diagnosis (1) Fracture, intertrochanteric, right femur Qualifiers: Encounter type: initial encounter Fracture type: closed Qualified Code(s): S72.141A - Displaced intertrochanteric fracture of right femur, initial encounter for closed fracture Is this a current diagnosis for this admission?: YesPlan: Status post right hip IM nail #1 postoperative acute anemia on chronic anemia. Intraoperative patient had the proximal to 75 mL of blood loss and given the nature of the surgical procedure majority of the blood loss was probably secondary to the fracture and exacerbated by patient's thrombocytopenia. At this point we will hold her heparin given her risk of bleeding. She will receive 2 units of packed red blood cells. #2 pain control #3 physical therapy weightbearing as tolerated #4 anticipate discharge home with home health.
[2016-10-29] MEDS ORDERED: FUROSEMIDE INJ/PF 20 MG/2 ML SDV IV ONE (15:00)
[2016-10-29] MEDS ORDERED: ALPRAZOLAM 0.25 MG TABLET PO PRN (16:44)
--- NOTE | 2016-10-29 17:06 | PDOC PROGRESS REPORT ---
Subjective Progress Note for:: 10/29/16 Subjective:: Patient requested her Temple not be removed. Gently explained to patient that this can lead to infection and adverse outcome. Patient denies chest pain, shortness of breath, abdominal pain, nausea, vomiting , fevers, chills, diarrhea, constipation, headache. Patient is currently receiving blood. Physical Exam Vital Signs: Temp Pulse Resp BP Pulse Ox 98.4 F 97 16 127/78 H 91 L 10/29/16 13:42 10/29/16 13:42 10/29/16 13:42 10/29/16 13:42 10/29/16 13:42 Intake & Output 10/28/16 10/29/16 10/30/16 06:59 06:59 06:59 Intake Total 3828 600 Output Total 1680 Balance 2148 600 Weight 49.2 kg Exam: General: Awake alert and oriented x3, no acute respiratory distress HEENT: AT/NC, PERRL, EOMI, oropharynx is moist, pink, no scleral icterus, no conjunctival injection Neck: No JVD, trachea midline Chest: Clear to auscultation bilaterally, no wheezes rhonchi or rales, prolonged expiratory phase CV: Regular rate and rhythm, normal S1 and S2, no murmur, rub, or gallop Abdomen: Soft, nontender to palpation, nondistended, diminished bowel sounds; no rebound, rigidity, or guarding Extremities: No cyanosis, clubbing; 2+edema Neuro: Cranial nerves II through XII are grossly intact without focal deficits; awake alert and oriented x3 Psych: Tearful Results Laboratory Results: 10/29/16 05:58 10/29/16 05:58 10/28/16 10/29/16 10/29/16 08:18 05:58 05:58 WBC 5.1 RBC 2.30 L Hgb 6.4 L D Hct 19.7 L MCV 86 MCH 27.8 MCHC 32.3 RDW 16.7 H Plt Count 114 L Seg Neutrophils % 76.8 Lymphocytes % 13.9 Monocytes % 8.7 Eosinophils % 0.0 Basophils % 0.6 Absolute Neutrophils 3.9 Absolute Lymphocytes 0.7 Absolute Monocytes 0.4 Absolute Eosinophils 0.0 Absolute Basophils 0.0 Sodium 134.0 L Potassium 3.9 Chloride 102 Carbon Dioxide 26 Anion Gap 6 BUN 9 Creatinine 0.70 Est GFR ( Amer) > 60 Est GFR (Non-Af Amer) > 60 Glucose 103 Calcium 8.9 Blood Type A NEGATIVE Antibody Screen NEGATIVE Impressions: Chest X-Ray 10/27/16 00:00 IMPRESSION: NO ACUTE RADIOGRAPHIC FINDING IN THE CHEST. Lower Extremity CT 10/28/16 00:00 IMPRESSION: Comminuted, displaced, intertrochanteric fracture at the proximal right femur. If there is clinical concern for pathologic fracture, MRI can help in better evaluation. Fluoroscopy 10/28/16 09:45 IMPRESSION: IMAGE(S) OBTAINED DURING PROCEDURE. Hip/Pelvis X-Ray 10/28/16 09:45 IMPRESSION: IMAGE(S) OBTAINED DURING PROCEDURE. Assessment & Plan - Diagnosis (1) Closed right hip fracture Qualifiers: Encounter type: initial encounter Qualified Code(s): S72.001A - Fracture of unspecified part of neck of right femur, initial encounter for closed fracture Is this a current diagnosis for this admission?: YesPlan: Defer all leg pathology to primary surgeons including diagnosis and treatment of fracture and any related postoperative events. (2) Acute blood loss as cause of postoperative anemia Is this a current diagnosis for this admission?: YesPlan: Patient has been transfused 2 units packed red blood cells. Will give Lasix in between this. Likely secondary to loss in the thigh. (3) Acute alcohol intoxication Qualifiers: Complication of substance-induced condition: uncomplicated Qualified Code(s): F10.120 - Alcohol abuse with intoxication, uncomplicated Is this a current diagnosis for this admission?: YesPlan: Patient appears to not be withdrawing at this time. (4) Anemia Qualifiers: Anemia type: unspecified type Qualified Code(s): D64.9 - Anemia, unspecified Is this a current diagnosis for this admission?: YesPlan: Patient reports prior history of anemia. She is unsure of the cause. (5) Fracture, intertrochanteric, right femur Qualifiers: Encounter type: initial encounter Fracture type: closed Qualified Code(s): S72.141A - Displaced intertrochanteric fracture of right femur, initial encounter for closed fracture Is this a current diagnosis for this admission?: YesPlan: Status post IM nail postoperative day #1. Defer to the surgical primary team. (6) Hyponatremia Is this a current diagnosis for this admission?: YesPlan: Resolved. (7) Likely osteoporosis Is this a current diagnosis for this admission?: YesPlan: May be worked up as an outpatient. (8) Malnutrition Is this a current diagnosis for this admission?: YesPlan: Encourage by mouth intake. Add ensure. May affect wound healing and overall course. (9) Tobacco dependency Is this a current diagnosis for this admission?: YesPlan: Have offered nicotine replacement. (10) DVT prophylaxis Is this a current diagnosis for this admission?: YesPlan: Was receiving heparin. Currently on hold due to blood loss. (11) Anxiety Is this a current diagnosis for this admission?: YesPlan: We'll initiate patient on low-dose Xanax. Continue to monitor for signs of alcohol withdrawal. - Time Time Spent with patient: 25-34 minutes - Plan Summary Plan Summary: This case was discussed with Dr. Huber of orthopedics. At this time, the medicine team will be signing off and are available for any further consultations on this patient.
[2016-10-29] MEDS: ZOLPIDEM TARTRATE 5 MG TABLET PO SCH (21:40)
[2016-10-30] MEDS: LANSOPRAZOLE 30 MG TAB.RAP.DR PO SCH ×2 (05:39→17:04)
[2016-10-30] MEDS: MORPHINE SULFATE 10 MG/ML INJ IV PRN ×3 (05:51→20:12)
[2016-10-30 07:24] LABS: ABSOLUTE BASOPHILS # (AUTO) 0.1 10^3/uL (0.0-0.2); ABSOLUTE LYMPHOCYTES (AUTO) 0.5 10^3/uL (0.5-4.7); ABSOLUTE MONOCYTES (AUTO) 0.6 10^3/uL (0.1-1.4); BASOPHILS % (AUTO) 1.5 % (0-2); EOSINOPHILS % (AUTO) 0.1 % (0-6); HEMATOCRIT 29.6 % (36.0-47.0); HGB HCT DIFFERENCE 1.3; MEAN CORPUSCULAR HEMOGLOBIN 28.7 pg (27.0-33.4); MEAN CORPUSCULAR HGB CONC 34.8 g/dL (32.0-36.0); MEAN CORPUSCULAR VOLUME 83 fl (80-97); RED BLOOD COUNT 3.58 10^6/uL (3.72-5.28); SEGMENTED NEUTROPHILS % (AUTO) 77.4 % (42-78); WHITE BLOOD COUNT 5.2 10^3/uL (4.0-10.5)
[2016-10-30 07:45] LABS: ANION GAP 12 (5-19); BLOOD UREA NITROGEN 7 mg/dL (7-20); CALCIUM 8.6 mg/dL (8.4-10.2); CARBON DIOXIDE 25 mmol/L (22-30); CHLORIDE 99 mmol/L (98-107); CREATININE RESULT 0.65 mg/dL (0.52-1.25); GLUCOSE 94 mg/dL (75-110); POTASSIUM 3.4 mmol/L (3.6-5.0); SODIUM 135.8 mmol/L (137-145)
[2016-10-30 07:50] LABS: HEMOGLOBIN 10.3 g/dL (12.0-15.5)
--- NOTE | 2016-10-30 08:20 | PDOC PROGRESS REPORT ---
Subjective Progress Note for:: 10/30/16 Subjective:: Patient seen and evaluated this morning. States she has been getting different stories from the physical therapist, nursing staff and myself. She states the pain is worse with motion. Denies numbness or tingling. Denies chest pain or shortness of breath. Denies headache or dizziness. Physical Exam Vital Signs: Temp Pulse Resp BP Pulse Ox 98.8 F 108 H 12 126/71 H 95 10/30/16 04:58 10/30/16 04:58 10/30/16 04:58 10/30/16 04:58 10/30/16 04:58 Intake & Output 10/29/16 10/30/16 10/31/16 06:59 06:59 06:59 Intake Total 3828 1964 Output Total 1680 2015 Balance 2148 -23 Musculoskeletal exam: PRESENT: other - Right lower extremity: Dressing clean/dry /intact. Moderate thigh swelling no change compared to previous examination. Compartments soft and compressible no sign of compartment syndrome. Dorsalis pedis pulse 2+. Intact plantar flexion/dorsiflexion. Results Laboratory Results: 10/30/16 07:06 10/30/16 07:06 10/28/16 10/30/16 10/30/16 08:18 07:06 07:06 WBC 5.2 RBC 3.58 L Hgb 10.3 L D Hct 29.6 L MCV 83 MCH 28.7 MCHC 34.8 RDW 16.0 H Plt Count 120 L Seg Neutrophils % 77.4 Lymphocytes % 10.0 L Monocytes % 11.0 Eosinophils % 0.1 Basophils % 1.5 Absolute Neutrophils 4.0 Absolute Lymphocytes 0.5 Absolute Monocytes 0.6 Absolute Eosinophils 0.0 Absolute Basophils 0.1 Sodium 135.8 L Potassium 3.4 L Chloride 99 Carbon Dioxide 25 Anion Gap 12 BUN 7 Creatinine 0.65 Est GFR ( Amer) > 60 Est GFR (Non-Af Amer) > 60 Glucose 94 Calcium 8.6 Blood Type A NEGATIVE Antibody Screen NEGATIVE Impressions: Chest X-Ray 10/27/16 00:00 IMPRESSION: NO ACUTE RADIOGRAPHIC FINDING IN THE CHEST. Lower Extremity CT 10/28/16 00:00 IMPRESSION: Comminuted, displaced, intertrochanteric fracture at the proximal right femur. If there is clinical concern for pathologic fracture, MRI can help in better evaluation. Fluoroscopy 10/28/16 09:45 IMPRESSION: IMAGE(S) OBTAINED DURING PROCEDURE. Hip/Pelvis X-Ray 10/28/16 09:45 IMPRESSION: IMAGE(S) OBTAINED DURING PROCEDURE. Assessment & Plan - Diagnosis (1) Fracture, intertrochanteric, right femur Qualifiers: Encounter type: initial encounter Fracture type: closed Qualified Code(s): S72.141A - Displaced intertrochanteric fracture of right femur, initial encounter for closed fracture Is this a current diagnosis for this admission?: YesPlan: Status post IM nail right intertrochanteric fracture #1 continue physical therapy I have encouraged patient if she would like to be discharged to home she will be required to meet certain specific goals. I have suggested patient attempted to get out of bed and use the restroom with help from nursing staff. Patient states she was being pulled by physical therapy she is not to get out of bed and was told by nursing staff that she can get out of bed by herself to the restroom. Nursing staff and myself met with the patient and discussed goals and expectations. #2 heparin for DVT prophylaxis will restart once patient's hemoglobin has remained stable. #3 discharge planning will determine disposition of home versus rehabilitation pending advancements in therapy today.
[2016-10-30] MEDS: FERROUS SULFATE 325 MG TABLET PO SCH ×2 (09:49→18:11)
[2016-10-30 15:18] LABS: VITAMIN D 25-HYDROXY 7.2 ng/mL (30.0-100.0)
[2016-10-30] MEDS: OXYCODONE-ACETAMINOPHEN 5-325 MG TABLET PO PRN (15:58)
[2016-10-30] MEDS: ZOLPIDEM TARTRATE 5 MG TABLET PO SCH (21:13)
[2016-10-31] MEDS: LANSOPRAZOLE 30 MG TAB.RAP.DR PO SCH (05:28)
[2016-10-31 07:06] LABS: ABSOLUTE LYMPHOCYTES (AUTO) 0.7 10^3/uL (0.5-4.7); ABSOLUTE MONOCYTES (AUTO) 0.6 10^3/uL (0.1-1.4); ABSOLUTE NEUT (AUTO) 3.8 10^3/uL (1.7-8.2); BASOPHILS % (AUTO) 0.8 % (0-2); EOSINOPHILS % (AUTO) 0.4 % (0-6); HEMATOCRIT 28.7 % (36.0-47.0); HEMOGLOBIN 9.8 g/dL (12.0-15.5); HGB HCT DIFFERENCE 0.7; LYMPHOCYTES % (AUTO) 13.2 % (13-45); MEAN CORPUSCULAR HEMOGLOBIN 28.9 pg (27.0-33.4); MEAN CORPUSCULAR HGB CONC 34.1 g/dL (32.0-36.0); MEAN CORPUSCULAR VOLUME 85 fl (80-97); MONOCYTES % (AUTO) 11.4 % (3-13); RED BLOOD COUNT 3.39 10^6/uL (3.72-5.28); RED CELL DISTRIBUTION WIDTH 15.4 % (11.5-14.0); SEGMENTED NEUTROPHILS % (AUTO) 74.2 % (42-78); WHITE BLOOD COUNT 5.1 10^3/uL (4.0-10.5)
[2016-10-31 07:21] LABS: ANION GAP 9 (5-19); BLOOD UREA NITROGEN 8 mg/dL (7-20); CALCIUM 8.3 mg/dL (8.4-10.2); CARBON DIOXIDE 26 mmol/L (22-30); CHLORIDE 100 mmol/L (98-107); CREATININE RESULT 0.61 mg/dL (0.52-1.25); GLUCOSE 103 mg/dL (75-110); POTASSIUM 3.2 mmol/L (3.6-5.0); SODIUM 135.1 mmol/L (137-145)
[2016-10-31 07:23] LABS: VITAMIN D 1,25 DIHYDROXY 17.4 pg/mL (19.9-79.3)
[2016-10-31] MEDS: FERROUS SULFATE 325 MG TABLET PO SCH (09:50)
[2016-10-31] MEDS: OXYCODONE-ACETAMINOPHEN 5-325 MG TABLET PO PRN (10:00)
--- NOTE | 2016-10-31 10:17 | PDOC PROGRESS REPORT ---
Subjective Progress Note for:: 10/31/16 Subjective:: Patient doing well this morning. She states she is doing much better. Pain is now controlled she is asking for something less for pain medication. He progressed in therapy yesterday. Denies chest pain shortness of breath. Physical Exam Vital Signs: Temp Pulse Resp BP Pulse Ox 99.5 F 100 16 128/65 H 94 10/31/16 09:11 10/31/16 09:11 10/31/16 09:11 10/31/16 09:11 10/31/16 09:11 Intake & Output 10/30/16 10/31/16 11/01/16 06:59 06:59 06:59 Intake Total 1964 Output Total 2014 Balance -51 Musculoskeletal exam: PRESENT: other - Right lower extremity: Dressing clean/dry /intact no erythema or drainage. Moderate swelling. Intact plantar flexion/ dorsiflexion. Dorsalis pedis pulse 2+. No sensory deficits. No calf tenderness. Results Laboratory Results: 10/31/16 06:42 10/31/16 06:42 10/28/16 10/31/16 10/31/16 08:33 06:42 06:42 WBC 5.1 RBC 3.39 L Hgb 9.8 L Hct 28.7 L MCV 85 MCH 28.9 MCHC 34.1 RDW 15.4 H Plt Count 132 L Seg Neutrophils % 74.2 Lymphocytes % 13.2 Monocytes % 11.4 Eosinophils % 0.4 Basophils % 0.8 Absolute Neutrophils 3.8 Absolute Lymphocytes 0.7 Absolute Monocytes 0.6 Absolute Eosinophils 0.0 Absolute Basophils 0.0 Sodium 135.1 L Potassium 3.2 L Chloride 100 Carbon Dioxide 26 Anion Gap 9 BUN 8 Creatinine 0.61 Est GFR ( Amer) > 60 Est GFR (Non-Af Amer) > 60 Glucose 103 Calcium 8.3 L Transferrin 203 Impressions: Chest X-Ray 10/27/16 00:00 IMPRESSION: NO ACUTE RADIOGRAPHIC FINDING IN THE CHEST. Lower Extremity CT 10/28/16 00:00 IMPRESSION: Comminuted, displaced, intertrochanteric fracture at the proximal right femur. If there is clinical concern for pathologic fracture, MRI can help in better evaluation. Fluoroscopy 10/28/16 09:45 IMPRESSION: IMAGE(S) OBTAINED DURING PROCEDURE. Hip/Pelvis X-Ray 10/28/16 09:45 IMPRESSION: IMAGE(S) OBTAINED DURING PROCEDURE. Assessment & Plan - Diagnosis (1) Fracture, intertrochanteric, right femur Qualifiers: Encounter type: initial encounter Fracture type: closed Qualified Code(s): S72.141A - Displaced intertrochanteric fracture of right femur, initial encounter for closed fracture Is this a current diagnosis for this admission?: YesPlan: Status post right hip cephalo-medullary nail #1 physical therapy patient doing much better. Walked 40 feet yesterday. Have encouraged the patient to continue progressing in therapy. #2 pain control will switch to hydrocodone for pain. #3 heparin for DVT prophylaxis will be discharged home on enteric-coated aspirin given patient's history of anemia and high risk for bleeding issues. #4 discharge planning anticipated discharge home today patient will require home physical therapy and a rolling walker.
[2016-10-31 13:07] VITALS: BP 96/63
--- NOTE | 2016-11-03 11:36 | PDOC DISCHARGE SUMMARY ---
General - Admit/Disc Date/PCP Admission Date/Primary Care Provider: 10/28/16 00:18 Discharge Date: 10/31/16 - Discharge Diagnosis (1) Fracture, intertrochanteric, right femur Is this a current diagnosis for this admission?: Yes - Additional Information Resuscitation Status: Full Code Discharge Diet: As Tolerated Discharge Activity: Activity As Tolerated, Balance Activity w/Rest, No Lifting Over 10 Pounds, No Lifting/Push/Pulling Home Medications: Aspirin [Aspirin 325 mg Tablet] 325 mg PO BID #40 tablet 10/31/16 Hydrocodone/Acetaminophen [[place] 5-325 mg Tablet] 1 tab PO Q6 PRN #45 tablet Ondansetron HCl [Zofran 4 mg Tablet] 1 - 2 tab PO Q6 PRN #30 tablet 10/31/16 History of Present Illness History of Present Illness: HEMANTH ZARATE is a 46 year old female with a past medical history of tobacco dependency. The patient was brought to emergency room by EMS for complaints of fall with injury to right hip. Patient states that she was walking her dog who weighs approximately 150 pounds, the dog pulled her very abruptly, causing her to fall and land "very hard" on her right hip, she was unable to get up and ambulate after the fall. Patient states pain is 10/10. Denies numbness or tingling. Has had previous hip discomfort she states it pops and clicks but does not limit her. Denies fever chills or weight loss. Denies constitutional symptoms. Pain was improved with IV pain medication but she has not had any since 5 AM. Hospital Course Hospital Course: 46-year-old female who sustained a fall salting in a fracture of her right intratrochanteric hip. She was admitted to the hospital on 10/27/16. Hospitalist's consult for medical optimization. Definitive the is stable for operative treatment. On 10/28/16 patient underwent right intramedullary nail intratrochanteric hip fracture. She tolerated the procedure well. Patient did have postoperative anemia and received 2 units packed red blood cells. Workup for anemia and was essentially negative for exact etiology. She underwent physical therapy throughout her hospital course and progressed appropriately. At that point it was found patient was taken stable for discharge home on . Patient received heparin for DVT prophylaxis postoperatively and was to take enteric-coated aspirin 325 mg twice a day for DVT prophylaxis. Physical Exam Vital Signs: Temp Pulse Resp BP Pulse Ox 98.4 F 77 18 96/63 L 95 10/31/16 12:06 10/31/16 12:06 10/31/16 12:06 10/31/16 12:06 10/31/16 12:06 General appearance: PRESENT: no acute distress, well-developed, well-nourished Head exam: PRESENT: atraumatic, normocephalic Eye exam: PRESENT: conjunctiva pink, EOMI, PERRLA. ABSENT: scleral icterus Ear exam: PRESENT: normal external ear exam Mouth exam: PRESENT: moist, tongue midline Neck exam: PRESENT: full ROM. ABSENT: carotid bruit, JVD, lymphadenopathy, thyromegaly Respiratory exam: PRESENT: unlabored Cardiovascular exam: PRESENT: RRR. ABSENT: diastolic murmur, rubs, systolic murmur Pulses: PRESENT: normal dorsalis pedis pul, +2 pedal pulses bilateral Vascular exam: PRESENT: normal capillary refill GI/Abdominal exam: PRESENT: normal bowel sounds, soft. ABSENT: distended, guarding, mass, organolmegaly, rebound, tenderness Rectal exam: PRESENT: deferred Musculoskeletal exam: PRESENT: other - Right lower extremity: Thigh moderately swollen. Compartments soft and compressible no sign of compartment syndrome. No sensory deficits. No calf tenderness. Intact plantar flexion/dorsiflexion. Surgical incisions healing no evidence of erythema or drainage. Neurological exam: PRESENT: alert, awake, oriented to person, oriented to place , oriented to time, oriented to situation, CN II-XII grossly intact. ABSENT: motor sensory deficit Psychiatric exam: PRESENT: appropriate affect, normal mood. ABSENT: homicidal ideation, suicidal ideation Skin exam: PRESENT: dry, intact, warm. ABSENT: cyanosis, rash Results Laboratory Results: 10/31/16 06:42 10/31/16 06:42 Impressions: Chest X-Ray 10/27/16 00:00 IMPRESSION: NO ACUTE RADIOGRAPHIC FINDING IN THE CHEST. Lower Extremity CT 10/28/16 00:00 IMPRESSION: Comminuted, displaced, intertrochanteric fracture at the proximal right femur. If there is clinical concern for pathologic fracture, MRI can help in better evaluation. Fluoroscopy 10/28/16 09:45 IMPRESSION: IMAGE(S) OBTAINED DURING PROCEDURE. Hip/Pelvis X-Ray 10/28/16 09:45 IMPRESSION: IMAGE(S) OBTAINED DURING PROCEDURE. Plan Discharge Plan: Patient progressed properly during her hospital course. On 09/25/16 sutures orthopedic a stable for discharge to home. Patient follow the office with me in 10-14 days. She is to take enteric-coated aspirin 325 mg 1 by mouth twice a day for DVT prophylaxis. She is to call with any questions or concerns or increasing redness, swelling, pain, temperature greater than 101.5 or drainage from the wound.
== END 2016-10-31 15:50 | disposition home or self-care (01) | DRG 481 ==
LOC: ER 20:58 → UNDOADMIN 22:31 → EH 22:31 → 2N 10-28 02:00
PROVIDERS: ADMIT Orthopaedic Surgery; ATTEND Orthopaedic Surgery
PROC: 0QS636Z Reposition Right Upper Femur with Intramedullary Internal Fixation Device, Percutaneous Approach (ICD-10-PCS; principal; 2016-10-28 10:00)
PROC: 30233N1 Transfusion of Nonautologous Red Blood Cells into Peripheral Vein, Percutaneous Approach (ICD-10-PCS; 2016-10-29)
DX: S72.141A Displaced intertrochanteric fracture of right femur, initial encounter for closed fracture (principal); E87.1 Hypo-osmolality and hyponatremia; D62 Acute posthemorrhagic anemia; E46 Unspecified protein-calorie malnutrition; Z68.1 Body mass index [BMI] 19.9 or less, adult; W01.0XXA Fall on same level from slipping, tripping and stumbling without subsequent striking against object, initial encounter; F10.120 Alcohol abuse with intoxication, uncomplicated; Y90.3 Blood alcohol level of 60-79 mg/100 ml; I10 Essential (primary) hypertension; M81.0 Age-related osteoporosis without current pathological fracture; K21.9 Gastro-esophageal reflux disease without esophagitis; D69.6 Thrombocytopenia, unspecified; F17.210 Nicotine dependence, cigarettes, uncomplicated; F41.9 Anxiety disorder, unspecified; Z90.710 Acquired absence of both cervix and uterus
CPT/HCPCS: 01230; 36415; 36430; 71010; 80048; 80053; 80307; 81001; 82306; 82607; 82652; 82728; 82746; 83540; 83550; 84466; 85025; 85027; 85045; 85610; 85730; 86850; 86900; 86901; 86920; 88305; 88311; 93005; 93010; 94799; 96374; 99285; C1713; J0131; J0690; J1100; J1170; J1940; J2250; J2270; J2405; J2704; J3010; J3490; J7120; P9016

== ENCOUNTER 2017-03-02 05:19 | Emergency (ER) | payer MEDICAID ==
[2017-03-02] MEDS ORDERED: IBUPROFEN 600 MG TABLET PO ONE (06:09)
[2017-03-02] MEDS ORDERED: HYDROCODONE/ACETAMINOPHEN 5-325 MG TABLET PO ONE (06:09)
--- NOTE | 2017-03-02 06:56 | ER Document Report ---
ED Fall - General Chief Complaint: Fall Stated Complaint: FALL/TAILBONE PAIN Time Seen by Provider: 03/02/17 06:04 Notes: The patient is a 47-year-old female, past medical history right intertrochanteric hip fracture repaired 4 months ago, presents after she tripped on her pajamas and landed on her bottom. She is having tailbone pain and is worried that the hardware from her right hip surgery is dislodged. She denies numbness, tingling, saddle anesthesia, change in bowel or bladder, head injury, syncope or open wounds. TRAVEL OUTSIDE OF THE [place] IN LAST 30 DAYS: No - Related data Allergies/Adverse Reactions: metal Allergy (Intermediate, Uncoded 10/28/16 07:15) Past Medical History - General Information source: Patient - Social History Smoking Status: Unknown if Ever Smoked Family History: None - Estranged Patient has suicidal ideation: No Patient has homicidal ideation: No - Past Medical History Cardiac Medical History: Denies: Hx Coronary Artery Disease, Hx Heart Attack Comment Only: Hx Hypertension - Hypotension Pulmonary Medical History: Reports: Hx Bronchitis Denies: Hx Asthma, Hx COPD, Hx Pneumonia Neurological Medical History: Denies: Hx Cerebrovascular Accident, Hx Seizures Renal/ Medical History: Denies: Hx Peritoneal Dialysis GI Medical History: Reports: Hx Gastritis, Hx Gastroesophageal Reflux Disease, Hx Ulcer Musculoskeltal Medical History: Denies Hx Arthritis Past Surgical History: Reports: Hx Hysterectomy, Hx Tonsillectomy. Denies: Hx Pacemaker - Immunizations Hx Diphtheria, Pertussis, Tetanus Vaccination: No Review of Systems - Review of Systems Notes: REVIEW OF SYSTEMS: CONSTITUTIONAL: -fevers, -chills EENT: -eye pain, -difficulty swallowing, -nasal congestion CARDIOVASCULAR:-chest pain, -syncope. RESPIRATORY: -cough, -SOB GASTROINTESTINAL: -abdominal pain, - nausea, -vomiting, -diarrhea GENITOURINARY: -dysuria, -hematuria MUSCULOSKELETAL: +tailbone pain, +right hip pain, -back pain, -neck pain SKIN: -rash or skin lesions. HEMATOLOGIC: -easy bruising or bleeding. LYMPHATIC: -swollen, enlarged glands. NEUROLOGICAL: -altered mental status or loss of consciousness, -headache, - neurologic symptoms PSYCHIATRIC: -anxiety, -depression. ALL OTHER SYSTEMS REVIEWED AND NEGATIVE. Physical Exam - Vital signs Vitals: Temp Pulse Resp BP Pulse Ox 98.5 F 105 H 18 118/77 98 03/02/17 05:22 03/02/17 05:03/02/17 05:03/02/17 05:03/02/17 05:22 - Notes Notes: PHYSICAL EXAMINATION: GENERAL: Well-appearing, well-nourished and in no acute distress. HEAD: Atraumatic, normocephalic. EYES: Pupils equal round and reactive to light, extraocular movements intact, sclera anicteric, conjunctiva are normal. ENT: nares patent, oropharynx clear without exudates. Moist mucous membranes. NECK: Normal range of motion, supple without lymphadenopathy LUNGS: Breath sounds clear to auscultation bilaterally and equal. No wheezes rales or rhonchi. HEART: Regular rate and rhythm without murmurs ABDOMEN: Soft, nontender, normoactive bowel sounds. No guarding, no rebound. No masses appreciated. EXTREMITIES: Normal range of motion, no pitting or edema. No cyanosis. Tenderness over coccyx and right lateral hip. NEUROLOGICAL: Cranial nerves grossly intact. Normal speech, normal gait. Normal sensory and motor exams. PSYCH: Normal mood, normal affect. SKIN: Warm, Dry, normal turgor, no rashes or lesions noted. Course - Re-evaluation Re-evalutation: Patient has no evidence of coccyx fracture on x-ray. Her right hip ORIF is intact. Provided patient with instructions about contusion management and she understands. - Vital Signs Vital signs: Temp Pulse Resp BP Pulse Ox 98.5 F 105 H 18 118/77 98 03/02/17 05:22 03/02/17 05:03/02/17 05:03/02/17 05:03/02/17 05:22 - Diagnostic Test Radiology reviewed: Image reviewed, Reports reviewed Radiology results interpreted by me: Pelvis x-ray: NAD Discharge - Discharge Clinical Impression: Contusion of coccyx Qualifiers: Encounter type: initial encounter Qualified Code(s): S30.0XXA - Contusion of lower back and pelvis, initial encounter Condition: Stable Disposition: HOME, SELF-CARE Additional Instructions: Take ibuprofen or Naprosyn with food to help out with any bruising. Use ice packs and a doughnut to help relieve the pressure off your tailbone. Contusion Your injury has resulted in a contusion -- a crushing of the deep tissues. No injury to important structures was detected during the physician's exam. Contusions vary in the amount of pain they cause, and in the length of time required for healing. Typically, the area will become bruised, and will remain painful to touch for two or three weeks. However, most patients are back to working and playing within a few days. After the initial period of rest and cold-packs, your symptoms (together with the doctor's recommendations) will determine how rapidly you can get back to full activity. Usually this means "do what feels okay, but don't do things that hurt." If re-examination was recommended, it's important to follow up as instructed. Call the doctor or return any time if pain increases, if swelling becomes severe, if you develop numbness or weakness in an injured extremity, or if any other alarming symptoms occur. Referrals: JUAN WICK MD [ACTIVE STAFF] - Follow up as needed
--- NOTE | 2017-03-02 07:14 | RADIOLOGY REPORT (SQ) ---
EXAM DESCRIPTION: PELVIS AP COMPLETED DATE/TIME: 03/02/2017 6:59 am REASON FOR STUDY: coccyx and right hip tenderness COMPARISON: 10/28/2016, 10/27/2016. NUMBER OF VIEWS: One view TECHNIQUE: AP Pelvis LIMITATIONS: None. FINDINGS: MINERALIZATION: Normal. HIPS: The intramedullary heraclio and screw fixation of the right proximal femur with comminuted intertroc hanteric fracture site without significant demonstrated fusion, stable. PELVIS AND SACRUM: No acute fracture or dislocation. No worrisome bone lesions. PUBIS AND ISCHIUM: No acute fracture. LOWER LUMBAR SPINE: No significant findings as visualized. SOFT TISSUES: No findings. OTHER: No other significant finding. IMPRESSION: No significant interval change. ORIF of the right proximal femur partially imaged. TECHNICAL DOCUMENTATION: JOB ID: [id number] [employer]- All Rights Reserved
[2017-03-02 08:17] VITALS: BP 108/73
== END 2017-03-02 08:18 | disposition home or self-care (01) ==
LOC: ER 05:19
DX: S30.0XXA Contusion of lower back and pelvis, initial encounter (principal); M25.551 Pain in right hip; W01.198A Fall on same level from slipping, tripping and stumbling with subsequent striking against other object, initial encounter; Y93.89 Activity, other specified; Z98.890 Other specified postprocedural states; Z91.048 Other nonmedicinal substance allergy status
CPT/HCPCS: 99283; 72170; J3490